=== PATIENT | female | born 1940 | race Caucasian/White ===

== ENCOUNTER 2021-10-26 10:52 | Day surgery (SDC) | payer OTHER ==
[2021-10-21 12:03] VITALS: BMI 32.9
[2021-10-26 12:57] VITALS: BP 115/57; PULSE 76; TEMP 98.1
== END 2021-10-26 13:20 | disposition home or self-care (01) ==
LOC: FASU-ENDO 10:52
PROVIDERS: ATTEND Internal Medicine Gastroenterology
PROC: 0DB68ZX Excision of Stomach, Via Natural or Artificial Opening Endoscopic, Diagnostic (ICD-10-PCS; 2021-10-26)
PROC: 0DB48ZX Excision of Esophagogastric Junction, Via Natural or Artificial Opening Endoscopic, Diagnostic (ICD-10-PCS; 2021-10-26)
PROC: 0DB98ZX Excision of Duodenum, Via Natural or Artificial Opening Endoscopic, Diagnostic (ICD-10-PCS; principal; 2021-10-26 12:24)
DX: D64.9 Anemia, unspecified (principal); K22.10 Ulcer of esophagus without bleeding; K44.9 Diaphragmatic hernia without obstruction or gangrene; K29.50 Unspecified chronic gastritis without bleeding; K20.90 Esophagitis, unspecified without bleeding
CPT/HCPCS: 88305-TC; 88342-TC

== ENCOUNTER 2021-12-31 09:08 | Day surgery (SDC) | payer OTHER ==
[2021-12-29 10:15] VITALS: BMI 32.9
[2021-12-31 12:23] VITALS: PULSE 68; TEMP 98.1
[2021-12-31 12:32] VITALS: BP 124/69
== END 2021-12-31 12:35 | disposition home or self-care (01) ==
LOC: FASU-ENDO 09:08
PROVIDERS: ATTEND Internal Medicine Gastroenterology
PROC: 0DB68ZX Excision of Stomach, Via Natural or Artificial Opening Endoscopic, Diagnostic (ICD-10-PCS; 2021-12-31)
PROC: 0DB98ZX Excision of Duodenum, Via Natural or Artificial Opening Endoscopic, Diagnostic (ICD-10-PCS; principal; 2021-12-31 12:00)
DX: K29.50 Unspecified chronic gastritis without bleeding (principal); K44.9 Diaphragmatic hernia without obstruction or gangrene; Z13.810 Encounter for screening for upper gastrointestinal disorder
CPT/HCPCS: 88305-TC; 88342-TC

== ENCOUNTER 2022-02-22 09:35 | Day surgery (SDC) | payer OTHER ==
[2022-02-16 16:35] VITALS: BMI 32.9
[2022-02-22 11:22] VITALS: PULSE 75; TEMP 97.9
[2022-02-22 11:43] VITALS: BP 144/70
== END 2022-02-22 11:45 | disposition home or self-care (01) ==
LOC: FASU-ENDO 09:35
PROVIDERS: ATTEND Internal Medicine Gastroenterology
PROC: 0DJD8ZZ Inspection of Lower Intestinal Tract, Via Natural or Artificial Opening Endoscopic (ICD-10-PCS; principal; 2022-02-22 10:55)
DX: D64.9 Anemia, unspecified (principal); K64.8 Other hemorrhoids

== ENCOUNTER 2022-06-10 09:58 | Day surgery (SDC) | payer OTHER ==
[2022-05-26 14:46] VITALS: BMI 31.4
[2022-06-10 10:44] VITALS: BP 121/74; PULSE 70; RESP 16; TEMP 97.7
== END 2022-06-10 14:00 | disposition home or self-care (01) ==
LOC: FASU-ENDO 09:58
PROVIDERS: ATTEND Internal Medicine Gastroenterology
PROC: 0DJD8ZZ Inspection of Lower Intestinal Tract, Via Natural or Artificial Opening Endoscopic (ICD-10-PCS; principal; 2022-06-10)
DX: Z53.8 Procedure and treatment not carried out for other reasons (principal); D64.9 Anemia, unspecified

== ENCOUNTER 2022-07-01 08:54 | Day surgery (SDC) | payer OTHER ==
[2022-06-29 16:27] VITALS: BMI 31.4
[2022-07-01 09:17] VITALS: RESP 18
[2022-07-01 10:51] VITALS: BP 126/66; PULSE 70; TEMP 97.9
== END 2022-07-01 11:20 | disposition home or self-care (01) ==
LOC: FASU-ENDO 08:54
PROVIDERS: ATTEND Internal Medicine Gastroenterology
PROC: 0DBL8ZX Excision of Transverse Colon, Via Natural or Artificial Opening Endoscopic, Diagnostic (ICD-10-PCS; 2022-07-01)
PROC: 0DBP8ZX Excision of Rectum, Via Natural or Artificial Opening Endoscopic, Diagnostic (ICD-10-PCS; principal; 2022-07-01 10:10)
DX: D64.9 Anemia, unspecified (principal); D12.3 Benign neoplasm of transverse colon; K63.5 Polyp of colon; K64.1 Second degree hemorrhoids
CPT/HCPCS: 88305-TC